=== PATIENT | male | born 1990 | race African-American/Black ===

== ENCOUNTER 2022-10-18 09:47 | Emergency (ER) | payer SELFPAY ==
--- NOTE | ~2022-10-18 | CT_ITS ---
EXAMINATION: CT ABDOMEN AND PELVIS WITHOUT CONTRAST CLINICAL INFORMATION: Epigastric and right lower quadrant abdominal pain, intermittent. COMPARISON: Same day abdominal ultrasound TECHNIQUE: Multidetector volumetric imaging was performed from the superior aspect of the liver through the pubic symphysis. Sagittal and coronal reformatted images were obtained on the technologist's workstation. Evaluation of solid organs is limited given lack of IV contrast. This CT examination was performed using dose optimization techniques as appropriate, variously including the following: *Automated exposure control *Adjustment of mA and/or kV according to patient size (this includes techniques or standardized protocols for targeted exams where dose is matched to indication/reason for exam; i.e. extremities or head) *Use of iterative reconstruction technique DLP: 340 mGy-cm FINDINGS: Visualized lung bases are well aerated. The liver is normal in size. The gallbladder is normal in appearance. The pancreas, spleen and adrenal glands are unremarkable. Symmetrically sized kidneys. No renal calculi or hydronephrosis of either kidney. Normal caliber loops of small and large bowel. Normal appendix. Normal caliber abdominal aorta. No retroperitoneal lymphadenopathy. The bladder is normal in appearance. The prostate gland is normal in size. No gross free pelvic fluid. No inguinal lymphadenopathy. No acute osseous abnormality. CT/CT abdomen pelvis wo IV con IMPRESSION: No CT evidence for acute abnormality within the abdomen or pelvis. Fleischner guidelines were followed.
--- NOTE | ~2022-10-18 | CT_ITS ---
EXAMINATION: CT CERVICAL SPINE WITHOUT CONTRAST CLINICAL INFORMATION: Left-sided neck pain COMPARISON: None available. TECHNIQUE: Axial imaging was performed through the cervical spine. Reformatted coronal and sagittal images were provided for interpretation. This CT examination was performed using dose optimization techniques as appropriate, variously including the following: *Automated exposure control *Adjustment of mA and/or kV according to patient size (this includes techniques or standardized protocols for targeted exams where dose is matched to indication/reason for exam; i.e. extremities or head) *Use of iterative reconstruction technique DLP: 289 mGy-cm FINDINGS: The cervical spine is visualized in its entirety. There is reversal of the normal cervical lordosis. Normal C1/2 articulation. Cervical vertebral body heights are maintained. Cervical disc spaces are well-maintained diffusely. No appreciable degenerative changes of the cervical spine. Visualized lung apices are well aerated. There is mild biapical architectural distortion/scarring. CT/CT cervical spine wo IV con IMPRESSION: Unremarkable cervical spine CT. Fleischner guidelines were followed.
--- NOTE | ~2022-10-18 | US_ITS ---
EXAMINATION: US ABDOMEN LIMITED CLINICAL INFORMATION: Epigastric abdominal pain. COMPARISON: None available. TECHNIQUE: Real-time imaging of the right upper quadrant abdominal viscera. FINDINGS: PANCREAS: Normal. LIVER: Normal. The liver is normal in size. The liver contour is normal. Parenchymal echogenicity is normal. No focal hepatic lesion. There is no intrahepatic biliary duct dilatation seen. GALLBLADDER: Normal. The gallbladder is physiologically distended without evidence of stones, sludge, polyps, wall thickening or pericholecystic fluid. COMMON BILE DUCT: Normal in caliber measuring 0.3 cm in diameter. RIGHT KIDNEY: Normal. No hydronephrosis. No renal calculi or focal parenchymal lesions. The kidney measures 9.1 cm in maximum dimension. FREE FLUID: None. US/US abdomen limited IMPRESSION: No abnormal findings
[2022-10-18 10:04] VITALS: BP 155/91; PULSE 93; RESP 16; TEMP 36.9; O2SAT 100; BMI 19.6
[2022-10-18 10:46] LABS: Hematocrit 49.5 % (42.0-52.0); Hemoglobin 16.5 g/dl (14.0-18.0); Mean Corpuscular HGB Conc 33.3 g/dl (31.0-36.0); Mean Corpuscular Hemoglobin 30.3 pg (27.0-33.0); Mean Corpuscular Volume 90.8 fL (80.0-98.0); Mean Platelet Volume 9.9 fL (9.4-12.4); Platelet Count 204 X10*3/uL (160-400); Red Blood Count 5.45 X10*6/uL (4.60-5.80); Red Cell Distribution Width 12.1 % (11.0-16.0); White Blood Count 5.5 X10*3/uL (4.8-10.8)
[2022-10-18 10:49] LABS: Appearance Urine Clear; Color Urine Yellow; Glucose Urine UA Negative (Negative); Leukocyte Esterase Urine Negative (Negative); Nitrite Urine Negative (Negative); PH 7.5 (5.0-9.0); Specific Gravity - Urine 1.015 (1.005-1.025); Urine Blood Negative (Negative); Urine Ketones Negative (Negative); Urine Protein Negative (Neg-Trace)
[2022-10-18 11:10] LABS: Alanine Aminotransferase 20 U/L (0-40); Albumin Level 4.8 g/dL (3.5-5.0); Alkaline Phosphatase 52 U/L (39-117); Anion Gap 12 (12-20); Aspartate Amino Transferase 23 U/L (5-37); Blood Urea Nitrogen 8 mg/dL (9-16); Calcium 9.8 mg/dL (8.4-10.2); Carbon Dioxide 26 mmol/L (22-29); Chloride 103 mmol/L (96-108); Creatinine Clr Calc Pharmacy 80.7; Estimated Glomerular Filt Rate > 60; Glucose Random 104 mg/dL (60-115); Lipase 18 U/L (8-78); Potassium 3.6 mmol/L (3.3-5.1); Sodium 137 mmol/L (135-145); Total Protein 8.3 g/dL (6.5-8.0)
--- NOTE | 2022-10-18 13:48 | ED.GENADULT ---
HPI - General Adult General Chief complaint: General Medical Stated complaint: All Over Pain Time Seen by Provider: 10/18/22 10:35 Source: patient Mode of arrival: ambulatory Limitations: no limitations History of Present Illness HPI narrative: 31 year old male w/ no significant pmhx presents to the ED today w/ complaints of left neck pain, epigastric pain, and RLQ pain. This has been ongoing for quite some time, however, he states he has no primary care as he is here from [facility] for college. The neck pain bothers him at night & with exercise/movement, epigastric pain is worse w/ hunger, and the RLQ pain is intermittent w/ no triggers. He denies any headache, nausea, vomiting, fever, chills, hematochezia, melena, & coffee ground emesis. MD complaint: MULTIPLE COMPLAINTS Onset (ago): month(s) Related Data Previous Rx's Medication Instructions Recorded cyclobenzaprine 10 mg tablet 10 mg PO Q8H muscle cramps #14 tabs 10/18/22 famotidine 20 mg tablet (Pepcid) 20 mg PO BID rash #60 tabs 10/18/22 Allergies Allergy/AdvReac Type Severity Reaction Status Date / Time No Known Allergies Allergy Verified 10/18/22 10:04 Review of Systems Review of Systems: Constitutional : No Weight loss, No Fever, No Chills, No Fatigue, No Malaise ENT/Mouth : No Hoarseness, No sore throat, No Swallowing Difficulty Eyes: No Eye Pain, No Swelling, No Redness, No Foreign Body, No Discharge Cardiovascular : No Chest Pain, No SOB, No Dyspnea on Exertion, No Orthopnea, No Edema, No Palpitations Respiratory : No Cough, No Sputum, No Wheezing, No Dyspnea Gastrointestinal : (+) Epigastric/RLQ pain,No Nausea, No Vomiting, No Diarrhea, No Constipation, No Hematochezia, No Melena Genitourinary : No Dysuria, No Urinary Frequency, No Hematuria, No Urinary Incontinence, No Urgency Musculoskeletal : (+) myalgias to the L neck/shoulder area, No joint pain, No Joint Swelling Skin : No Skin Lesions, No rash Neuro : No Weakness, No Numbness, No Paresthesias, No Loss of Consciousness, No Dizziness, No Headache Yes all other systems are reviewed and are negative [facility] Past Medical History Attestation statement: The following information was validated with the patient. Source: old records reviewed and nursing notes reviewed Social History Social History Advance Directives: No Advance Directives Information Provided: No Physical Exam ED Vital Signs: Vital Signs - 24 hr 10/18/22 10:04 Temperature 98.5 F Pulse Rate 93 Respiratory Rate 16 Blood Pressure 155/91 H Pulse Oximetry 100 Oxygen Delivery Method Room Air BMI result Body Mass Index 19.6 vital signs have been reviewed as normal and appeared to be correct. Blood pressure normal. Heart rate normal. Respiration rate normal. Temperature normal. Oxygen saturation normal. Appearance: Alert. Oriented X3. No acute distress. Head: Normal external exam. Normocephalic. Atraumatic. Eyes: PERRLA. EOMI. Conjunctiva and sclera normal. Eyelids normal. ENT:Pharynx normal. Uvula midline. Moist mucous membranes. No lesions/ulcerations or masses noted on the tongue. Normal voice. No trismus noted. No drooling noted. No muffled voice noted. Neck: Normal inspection. Neck supple. FROM. No adenopathy. No tracheal deviation noted. No meningeal signs. No neck mass noted. No signs of trauma noted. mild tenderness palpation to the left lateral paracervical musculature. No mid cervical tenderness step-offs or deformities noted. Patient neuro intact bilaterally and distally in all 4 extremities. No rashes /lesions/induration/ fluctuance or signs of infection noted. Respiratory: No respiratory distress. Painless inspiration. No signs of trauma noted. Abdomen: Soft w/ slight tenderness to palpation of the epigastric/RLQ. Bowel sounds normal in all 4 quadrants. No distention noted. No organomegaly noted. No visible injury noted. No peritoneal signs present. Back: Full range of motion noted. No signs of trauma. Skin: Skin warm and dry. Normal skin color. Normal skin turgor. No rashes/lesions/lacerations noted. Extremities: No lower extremity edema. No calf tenderness is noted. Extremities exhibit normal range of motion and nontender. Neuro: Oriented X 3. Normal steady gait. Course Course Course Narrative: labs reviewed BUN 8, total bilirubin 2.0 total protein 8.3 otherwise all other labs are within normal limits including urine. CT scan abdomen pelvis without contrast ultrasound of abdomen and CT scan of cervical spine of neck revealed chronic changes no acute processes. Therefore patient most likely GERD and muscle spasms. Will DC home with Pepcid and muscle relaxants and multiple referrals to different PCPs that he can call on his own to follow-up along with GI number that he can call for follow-up. Instructed patient to return if any new or worsening symptoms. Patient understands agrees with this plan. Medical Decision Making Medical Decision Making [facility] Narrative: 31 year old male w/ no significant pmhx presents to the ED today w/ complaints of neck/shoulder pain, epigastric pain, and RLQ pain. On exam his VSS and NAD, no signs of trauma or injury were noted, no peritoneal signs, and no signs of an acute abdomen at this moment. His neck appears muscular in nature on exam w/ no signs of injury or trauma observed and no red flag symptoms. Likely a gastritis, PUD, or IBS for his abdominal complaints. His shoulder is likely tendonitis or muscle strain/overuse. Unlikely, pancreatitis, cholecystitis, appendicitis, bowel obstruction for his abdominal complaints. His shoulder is unlikely to be a rotator cuff injury (strain/tear), impingement, or adhesive capsulitis. Plan: CT neck & abdomen/pelvis w/ IV contrast, establish primary care Differential Diagnosis Differential Diagnoses: The differential diagnosis associated with the presentation includes see above Admission/Observation Consideration of admission/observation: Escalation of care including admission/observation considered see above Lab Data [facility] Lab Attestation statement: I reviewed the patient's lab results. 10/18/22 10:33 10/18/22 10:33 Labs: Lab Results 10/18/22 10/18/22 10/18/22 Range/Units 10:33 10:33 10:33 WBC 5.5 (4.8-10.8) X10*3/uL RBC 5.45 (4.60-5.80) X10*6/uL Hgb 16.5 (14.0-18.0) g/dl Hct 49.5 (42.0-52.0) % MCV 90.8 (80.0-98.0) fL MCH 30.3 (27.0-33.0) pg MCHC 33.3 (31.0-36.0) g/dl RDW 12.1 (11.0-16.0) % Plt Count 204 (160-400) X10*3/uL MPV 9.9 (9.4-12.4) fL Absolute Nucleated RBC 0.000 (0.0-0.012) X10*3/uL Nucleated RBC % (auto) 0.0 (0.0-0.2) /100WBC Sodium 137 (135-145) mmol/L Potassium 3.6 (3.3-5.1) mmol/L Chloride 103 (96-108) mmol/L Carbon Dioxide 26 (22-29) mmol/L Anion Gap 12 (12-20) BUN 8 L (9-16) mg/dL Creatinine 1.22 (0.5-1.4) mg/dL Estim Creat Clear Calc 80.7 Estimated GFR > 60 Random Glucose 104 (60-115) mg/dL Calcium 9.8 (8.4-10.2) mg/dL Total Bilirubin 2.0 H (0.0-1.0) mg/dL AST 23 (5-37) U/L ALT 20 (0-40) U/L Alkaline Phosphatase 52 (39-117) U/L Total Protein 8.3 H (6.5-8.0) g/dL Albumin 4.8 (3.5-5.0) g/dL Lipase 18 (8-78) U/L Urine Color Yellow Urine Appearance Clear Urine pH 7.5 (5.0-9.0) Ur Specific [place] 1.015 (1.005-1.025) Urine Protein Negative (Neg-Trace) mg/dL Urine Glucose (UA) Negative (Negative) mg/dL Urine Ketones Negative (Negative) mg/dL Urine Blood Negative (Negative) Urine Nitrite Negative (Negative) Ur Leukocyte Esterase Negative (Negative) Independent Interpretation I performed an independent interpretation of an: CT Scan Interpretation: Abdominal ultrasound, CT scan of cervical spine, CT scan abdomen pelvis without IV contrast are reviewed by myself this is my independent interpretation no acute findings agreeable with radiology report Radiology Impression Discussion of test interpretation with radiology: I have reviewed the radiologist's reading. Radiologist Impression: FINDINGS: The cervical spine is visualized in its entirety. There is reversal of the normal cervical lordosis. Normal C1/2 articulation. Cervical vertebral body heights are maintained. Cervical disc spaces are well-maintained diffusely. No appreciable degenerative changes of the cervical spine. Visualized lung apices are well aerated. There is mild biapical architectural distortion/scarring.? CT/CT cervical spine wo IV con IMPRESSION: Unremarkable cervical spine CT. ? Fleischner guidelines were followed. FINDINGS: Visualized lung bases are well aerated. The liver is normal in size. The gallbladder is normal in appearance. The pancreas, spleen and adrenal glands are unremarkable. Symmetrically sized kidneys. No renal calculi or hydronephrosis of either kidney. Normal caliber loops of small and large bowel. Normal appendix. Normal caliber abdominal aorta. No retroperitoneal lymphadenopathy. The bladder is normal in appearance. The prostate gland is normal in size. No gross free pelvic fluid. No inguinal lymphadenopathy. No acute osseous abnormality. CT/CT abdomen pelvis wo IV con IMPRESSION: No CT evidence for acute abnormality within the abdomen or pelvis. ? Fleischner guidelines were followed. FINDINGS: PANCREAS: Normal. LIVER: Normal. The liver is normal in size. The liver contour is normal. Parenchymal echogenicity is normal. No focal hepatic lesion. There is no intrahepatic biliary duct dilatation seen. GALLBLADDER: Normal. The gallbladder is physiologically distended without evidence of stones, sludge, polyps, wall thickening or pericholecystic fluid. COMMON BILE DUCT: Normal in caliber measuring 0.3 cm in diameter. RIGHT KIDNEY: Normal. No hydronephrosis. No renal calculi or focal parenchymal lesions. The kidney measures 9.1 cm in maximum dimension. FREE FLUID: None. US/US abdomen limited IMPRESSION: No abnormal findings Independent Historian Clinical information obtained from an independent historian. History obtained from or confirmed by: Other (Patient ) External Record Review no prior records to review in our system Social Determinants Patient?s care significantly limited by Social Determinants of Health including: Other Social Determinant of Health Critical Care Time Critical Care Time Critical Care Time: Yes Total Critical Care Time: 60 Attestation: I personally attest to this time spent taking care of the patient Discharge Plan Discharge Clinical Impression: Muscle spasms of neck, Generalized body aches, Abdominal pain, GERD (gastroesophageal reflux disease) Patient Disposition: Home, Self-Care Instructions: Gastroesophageal Reflux Disease (ED), Abdominal Pain (ED), Muscle Spasm (ED) Additional Instructions: I GAVE YOU MULTIPLE PROVIDERS BELOW WHERE YOU CAN FOLLOW-UP WITH ORNAMENTAL IRONWORKER AND MULTIPLE PRIMARY CARE PROVIDERS CALL TO MAKE A FOLLOW-UP APPOINTMENT WITH ALL OF THEM AT THEIR EARLIEST CONVENIENCE THERE MAY BE A WAITING LIST Prescriptions: New famotidine [Pepcid] 20 mg tablet 20 mg PO BID Qty: 60 0RF cyclobenzaprine 10 mg tablet 10 mg PO Q8H Qty: 14 0RF Referrals: [facility] [place] [facility] [Provider Group] [facility] [Provider Group] [facility] [Provider Group] [facility] [place] [Provider Group[facility] [Provider Group] [facility] [place] [Provider Group] [facility] [Provider Group] Stand Alone Forms: Work/School Release
== END 2022-10-18 15:26 | disposition home or self-care (01) ==
PROVIDERS: Emergency Provider Emergency Medicine Emergency Medical Services
DX: M62.838 Other muscle spasm (principal); M79.10 Myalgia, unspecified site; R10.31 Right lower quadrant pain; K21.9 Gastro-esophageal reflux disease without esophagitis
CPT/HCPCS: 36415; 72125; 74176; 76705; 80053; 81003; 83690; 85027; 99282; 99284